=== PATIENT | male | born 1985 | race Caucasian/White ===

== ENCOUNTER 2020-10-26 08:52 | Emergency (ER) | payer OTHER ==
[2020-10-26 09:09] VITALS: BP 140/89; PULSE 70; RESP 18; TEMP 98.7
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
[2020-10-26] MEDS ORDERED: ACET/COD 300 MG/30 MG STARTER PACK 6 TAB BTL PO STA (09:57)
== END 2020-10-26 10:07 | disposition home or self-care (01) ==
LOC: EC 08:52
DX: S20.219A Contusion of unspecified front wall of thorax, initial encounter (principal); V58.0XXA Driver of pick-up truck or van injured in noncollision transport accident in nontraffic accident, initial encounter; Y92.410 Unspecified street and highway as the place of occurrence of the external cause; Z86.14 Personal history of Methicillin resistant Staphylococcus aureus infection
CPT/HCPCS: 71111; 99284

== ENCOUNTER 2025-05-07 09:26 | Emergency (ER) | payer OTHER ==
[2025-05-07 09:33] VITALS: BP 113/72; PULSE 111; RESP 20; TEMP 98
[2025-05-07] MEDS: dexAMETHasone 2 MG TAB PO STA (11:04)
[2025-05-07] MEDS: IBUPROFEN 800 MG TAB PO STA (11:04)
--- NOTE | 2025-05-07 11:13 | XR ---
EXAMINATION TYPE: XR chest 2V DATE OF EXAM: 05/07/2025 11:03 AM COMPARISON: 10/26/2020 CLINICAL INDICATION: Male, 39 years old with history of cough, TECHNIQUE: XR chest 2V view(s) obtained. FINDINGS: The heart size is normal. The pulmonary vasculature is normal. There is a mild lingular infiltrate present. Correlate for atelectasis or pneumonia. Follow-up can be performed. IMPRESSION: 1. Mild atelectasis or pneumonia within the lingula. Follow-up can be performed. [facility], , 05/07/2025 11:11 AM
[2025-05-07 11:49] LABS: Influenza A Not Detected (Not Detectd); Influenza B Not Detected (Not Detectd); RSV Not Detected (Not Detectd)
--- NOTE | 2025-05-07 12:08 | ED ---
General Adult HPI - General Chief complaint: Upper Respiratory Infection Stated complaint: ENT Time Seen by Provider: 05/07/25 10:30 Source: patient, RN notes reviewed, old records reviewed Mode of arrival: ambulatory Limitations: no limitations - History of Present Illness Initial comments: Patient is a 39-year-old male who presents emergency department complaining of URI symptoms. Has been ongoing for the last few days. His son has similar complaints. Endorses rhinorrhea, sore throat, ear congestion, mild cough. Productive of yellowish sputum. Denies any chest pain or abdominal pain. Denies nausea or vomiting or diarrhea. No significant past medical history. No history of asthma or COPD. Presents for further evaluation at this time. - Related Data Home Medications Medication Instructions Recorded Confirmed Ibuprofen [Motrin Ib] 600 - 800 mg PO Q8H PRN 10/26/20 10/26/20 Previous Rx's Medication Instructions Recorded Azithromycin [Zithromax] 250 mg PO DAILY 4 Days #4 tab 05/07/25 Allergies Allergy/AdvReac Type Severity Reaction Status Date / Time No Known Allergies Allergy Verified 05/07/25 09:33 Review of Systems ROS Statement: Those systems with pertinent positive or pertinent negative responses have been documented in the HPI. Review of Systems: CONST: Denies fever EYES: Denies blurry vision ENT: Endorses nasal congestion C/V: Denies Chest pain RESP: Denies shortness of breath GI: Denies abdominal pain : Denies dysuria SKIN: Denies rash. MSK: Denies joint pain. NEURO: Denies headache ROS Other: All systems not noted in ROS Statement are negative. Past Medical History Past Medical History: Hypertension History of Any Multi-Drug Resistant Organisms: MRSA Date of last positivie culture/infection: 2005 MDRO Source:: back Past Surgical History: No Surgical Hx Reported Past Psychological History: ADD/ADHD, Bipolar Smoking Status: Never smoker Past Alcohol Use History: Rare Past Drug Use History: None Reported General Exam - General Exam Comments Initial Comments: General: Appears in no acute distress. HEAD: Normal with no signs of head trauma. EYES: EOMI ENT: Hearing grossly intact, normal oropharynx. Some fluid behind bilateral TMs with no obvious erythema. No discharge. Posterior oropharynx is erythematous with no evidence of exudate. RESPIRATORY: No hypoxia. No increased work of breathing. Clear breath sounds bilaterally. No wheezing. C/V: Regular rate and rhythm. S1 and S2 auscultated,peripheral pulses 2+ and intact throughout ABD: Nondistended EXT: No obvious deformity. SKIN: No rashes or lesions observed on exposed skin. NEURO: Alert and orient x 4. Limitations: no limitations Course Vital Signs 05/07/25 09:31 Temperature 98 F Pulse Rate 111 H Respiratory 20 Rate Blood Pressure 113/72 O2 Sat by Pulse 99 Oximetry Medical Decision Making - Medical Decision Making Was pt. sent in by a medical professional or institution (CHARLI Hill, SQUIRT MACHINE OPERATOR, urgent care, hospital, or long-term...) When possible be specific @ -No Did you speak to anyone other than the patient for history (EMS, parent, family, police, friend...)? What history was obtained from this source @ -No Did you review nursing and triage notes (agree or disagree)? Why? @ -I reviewed and agree with nursing and triage notes Were old charts reviewed (outside hosp., previous admission, EMS record, old EKG, old radiological studies, urgent care reports/EKG's, long-term records)? Report findings @ -No old charts were reviewed Differential Diagnosis (chest pain, altered mental status, abdominal pain women, abdominal pain men, vaginal bleeding, weakness, fever, dyspnea, syncope, headache, dizziness, GI bleed, back pain, seizure, CVA, palpatations, mental health, musculoskeletal)? @ -Viral syndrome, pneumonia, strep. This list is not all inclusive. EKG interpreted by me (3pts min.). @ -None done X-rays interpreted by me (1pt min.). @ -Chest x-ray shows likely early left-sided pneumonia. CT interpreted by me (1pt min.). @ -None done U/S interpreted by me (1pt. min.). @ -None done What testing was considered but not performed or refused? (CT, X-rays, U/S, labs)? Why? @ -None What meds were considered but not given or refused? Why? @ -None Did you discuss the management of the patient with other professionals (professionals i.e. CHARLI Hill, SQUIRT MACHINE OPERATOR, lab, RT, psych nurse, psychologist social, flight control manager, teacher, registration officer, case packer and sealer)? Give summary @ -No Was smoking cessation discussed for >3mins.? @ -No Was critical care preformed (if so, how long)? @ -No Were there social determinants of health that impacted care today? How? (Homelessness, low income, unemployed, alcoholism, drug addiction, t ransportation, low edu. Level, literacy, decrease access to med. care, longterm, rehab)? @ -No Was there de-escalation of care discussed even if they declined (Discuss DNR or withdrawal of care, Hospice)? DNR status @ -No What co-morbidities impacted this encounter? (DM, HTN, Smoking, COPD, CAD, Cancer, CVA, ARF, Chemo, Hep., AIDS, mental health diagnosis, sleep apnea, morbid obesity)? @ -None Was patient admitted / discharged? Hospital course, mention meds given and route, prescriptions, significant lab abnormalities, going to OR and other pertinent info. @ -Patient presents with URI symptoms. Positive sick contacts. Will obtain viral swab, strep swab, chest x-ray. Patient was in agreement this plan. He will be symptomatically treat with ibuprofen as well as a dose of steroid. Vitals are within acceptable limits. Chest x-ray shows likely early pneumonia. Strep swab negative. Viral swabs negative. I update the patient. He will be started on antibiotics, azithromycin. He will be discharged home with a prescription. Patient was in agreement this plan. Strict return precautions discussed. I will provide the patient with a prescription for azithromycin. I instructed the patient to follow up with their PCP in the next 1-3 days.. I explained that the patient should return to the emergency department if they experience any worsening symptoms. Strict return precautions were discussed with the patient. The patient expressed understanding of these instructions. I answered all questions that the patient had. The patient was discharged home in good condition with their prescriptions and follow up information. Undiagnosed new problem with uncertain prognosis? @ -No Drug Therapy requiring intensive monitoring for toxicity (Heparin, Nitro, Insulin, Cardizem)? @ -No Were any procedures done? @ -No Diagnosis/symptom? @ -Pneumonia Acute, or Chronic, or Acute on Chronic? @ -Acute Uncomplicated (without systemic symptoms) or Complicated (systemic symptoms)? @ -Uncomplicated Side effects of treatment? @ -No Exacerbation, Progression, or Severe Exacerbation? @ -No Poses a threat to life or bodily function? How? (Chest pain, [place], [place], pneumonia, PE, COPD, DKA, ARF, appy, cholecystitis, CVA, Diverticulitis, Homicidal, Suicidal, threat to staff... and all critical care pts) @ -Unlikely at this time - Lab Data Lab Results 05/07/25 05/07/25 Range/Units 10:38 10:38 Influenza Type A (PCR) Not Detected (Not Detectd) Influenza Type B (PCR) Not Detected (Not Detectd) RSV (PCR) Not Detected (Not Detectd) SARS-CoV-2 (PCR) Not Detected (Not Detectd) Group A Strep (PCR) NOT DETECTED (Not Detectd) Disposition Clinical Impression: Pneumonia Disposition: HOME SELF-CARE Condition: Good Instructions (If sedation given, give patient instructions): Community Acquired Pneumonia (ED) Prescriptions: Azithromycin [Zithromax] 250 mg PO DAILY 4 Days #4 tab Is patient prescribed a controlled substance at d/c from ED?: No Referrals: Alonzo Fall DO [Primary Care Provider] - 1-2 days Time of Disposition: 12:01
[2025-05-07] MEDS: AZITHROMYCIN 500 MG TAB PO STA (12:21)
== END 2025-05-07 12:28 | disposition home or self-care (01) ==
LOC: EC 09:26
DX: J18.9 Pneumonia, unspecified organism (principal)
CPT/HCPCS: 87651; 87636; 71046; 99283; J8540